=== PATIENT | female | born 1970 | race Caucasian/White ===

== ENCOUNTER → 2016-07-03 | Outpatient (CLI) | payer OTHER | LOC: COL.RAD 12:36 | DX: R10.2 Pelvic and perineal pain (principal) ==

== ENCOUNTER → 2016-10-21 | Outpatient (CLI) | payer OTHER | LOC: COL.RAD 10-15 13:15 | DX: M17.4 Other bilateral secondary osteoarthritis of knee (principal); S89.92XA Unspecified injury of left lower leg, initial encounter ==